=== PATIENT | female | born 1980 | race Caucasian/White ===

== ENCOUNTER 2019-12-14 15:02 | Emergency (ER) | payer OTHER ==
[~2019-12-14] VITALS: Ht 170.2 cm; Wt 47.6 kg
== END 2019-12-14 15:26 | disposition home or self-care (01) ==
LOC: ER 15:05
DX: K02.9 Dental caries, unspecified (principal); L03.211 Cellulitis of face
CPT/HCPCS: A4663

== ENCOUNTER 2020-03-19 22:26 | Emergency (ER) | payer OTHER ==
[~2020-03-19] VITALS: Ht 170.2 cm; Wt 52.2 kg
--- NOTE | 2020-03-19 22:46 | NUR ---
Dr. Peter at bedside for MSE. Chapperoned by ESTIVEN Benitez.
--- NOTE | 2020-03-19 22:57 | NUR ---
Dr. Peter performing pelvic exam, chapperoned by ESTIVEN Benitez.
[2020-03-19 23:06] LABS: *BILIRUBIN,URIN 1+ (NEGATIVE); *BLOOD, URINE NEGATIVE (NEGATIVE); *CLARITY,URINE CLEAR (CLEAR); *COLOR,URINE Orange (YELLOW); *KETONES,URINE NEGATIVE (NEGATIVE); LEUKOCYTE ESTERASE ,URINE 3+ (NEGATIVE); NITRITE, URINE POSITIVE (NEGATIVE); PH,URINE 6.5 (5.0-8.0); UGLUCOSE TRACE (NEGATIVE)
[2020-03-19] MEDS ORDERED: FLUCONAZOLE 100 MG TABLET ONE (23:06)
[2020-03-19 23:08] LABS: *URINE HCG, QUAL NEGATIVE (NEGATIVE)
[2020-03-19] MEDS ORDERED: FLUCONAZOLE 100 MG TABLET PO ONE (23:15)
--- NOTE | 2020-03-19 23:19 | NUR ---
Patient discharged to home in stable condition. Written and verbal after care instructions given. Patient verbalizes understanding of instructions. Stressed follow up or return to ER for worsening s/s. Patient ambulated out of ER with steady gait, no acute signs of distress, VSS, all belongings taken.
[2020-03-19 23:21] VITALS: BP 130/85
[2020-03-19 23:26] LABS: RBC,URINE 0-3 /HPF (0-3); SQUAMOUS EPITHELIAL CELL,UR MODERATE /HPF (NONE SEEN)
[2020-03-19 23:27] LABS: TRICHOMONAS,URINE FEW /HPF (NONE SEEN)
[2020-03-19 23:30] LABS: BACTERIA,URINE FEW /HPF (NONE SEEN)
== END 2020-03-19 23:22 | disposition home or self-care (01) ==
LOC: ER 22:28
DX: B37.3 Candidiasis of vulva and vagina (principal); N39.0 Urinary tract infection, site not specified; R03.0 Elevated blood-pressure reading, without diagnosis of hypertension; F17.200 Nicotine dependence, unspecified, uncomplicated
CPT/HCPCS: 84703; 87086; A4663

== ENCOUNTER 2020-12-04 18:10 | Emergency (ER) | payer OTHER ==
[~2020-12-04] VITALS: Ht 167.6 cm; Wt 54.4 kg
[2020-12-04] MEDS ORDERED: SULF15DR6 OP (18:42)
--- NOTE | 2020-12-04 18:51 | NUR ---
Patient discharged to home in stable condition. Written and verbal after care instructions given. Patient verbalizes understanding of instructions. Stressed follow up or return to ER for worsening s/s.
== END 2020-12-04 18:52 | disposition home or self-care (01) ==
LOC: ER 18:12
DX: H00.014 Hordeolum externum left upper eyelid (principal); Z88.5 Allergy status to narcotic agent; Z88.0 Allergy status to penicillin; F17.200 Nicotine dependence, unspecified, uncomplicated
CPT/HCPCS: A4663

== ENCOUNTER 2021-01-12 12:38 | Emergency (ER) | payer OTHER ==
[~2021-01-12] VITALS: Ht 167.6 cm; Wt 54.4 kg
[~2021-01-12 12:38] MED LIST: SULF15DR6 OP
--- NOTE | 2021-01-12 12:50 | NUR ---
at bedside for assessment
--- NOTE | 2021-01-12 13:00 | NUR ---
manual breast exam performed by
--- NOTE | 2021-01-12 14:03 | NUR ---
Lorne luna in EDM - 01/12/21 at 1404 by LASHAWN Patient discharged to home in stable condition. Written and verbal after care instructions given. Patient verbalizes understanding of instructions. Stressed follow up or return to ER for worsening s/s.
--- NOTE | 2021-01-12 14:03 | NUR ---
Pt was given verbal ACI by but left before written ACI was given.
== END 2021-01-12 14:03 | disposition home or self-care (01) ==
LOC: ER 12:38
DX: N63.20 Unspecified lump in the left breast, unspecified quadrant (principal); R01.1 Cardiac murmur, unspecified; F41.9 Anxiety disorder, unspecified; Z80.8 Family history of malignant neoplasm of other organs or systems; Z88.0 Allergy status to penicillin; Z86.69 Personal history of other diseases of the nervous system and sense organs
CPT/HCPCS: A4663

== ENCOUNTER 2021-03-06 16:35 | Emergency (ER) | payer OTHER ==
[~2021-03-06] VITALS: Ht 167.6 cm; Wt 54.4 kg
--- NOTE | 2021-03-06 18:00 | NUR ---
at bedside for assessment
[2021-03-06] MEDS ORDERED: FLUORESCEIN SODIUM 1 MG STRIP ONE (18:29)
[2021-03-06] MEDS ORDERED: TETRACAINE HCL 0.5% OPHT DROP 2 ML BOTTLE ONE (18:29)
[2021-03-06] MEDS ORDERED: SULF15DR6 LEFTEYE (18:47)
--- NOTE | 2021-03-06 19:00 | NUR ---
Patient discharged to home in stable condition. Patient left without signing discharge papers. Written and verbal after care instructions given. Patient verbalizes understanding of instructions. Stressed follow up or return to ER for worsening s/s.
[2021-03-06 19:14] VITALS: BP 153/66
== END 2021-03-06 19:00 | disposition home or self-care (01) ==
LOC: ER 16:38
DX: H10.9 Unspecified conjunctivitis (principal); Z88.0 Allergy status to penicillin; G43.909 Migraine, unspecified, not intractable, without status migrainosus; Z88.5 Allergy status to narcotic agent
CPT/HCPCS: A4663

== ENCOUNTER 2021-05-24 22:55 | Emergency (ER) | payer OTHER ==
[~2021-05-24] VITALS: Ht 170.2 cm; Wt 52.2 kg
[~2021-05-24 22:55] MED LIST changes: +SULF15DR6 LEFTEYE
[2021-05-25] MEDS ORDERED: ERYT250C69 PO (00:01)
[2021-05-25] MEDS ORDERED: OXYC-128 PO (00:01)
[2021-05-25] MEDS ORDERED: ERYTHROMYCIN BASE 250 MG TABLET.DR PO ONE (00:15)
[2021-05-25] MEDS ORDERED: OXYCODONE/APAP 5-325 MG TABLET PO ONE (00:15)
[2021-05-25] MEDS ORDERED: OXYCODONE/APAP 5-325 MG TABLET ONE (00:21)
[2021-05-25 00:31] VITALS: BP 110/77
--- NOTE | 2021-05-27 11:58 | NUR ---
left message for patient. Her wound culture was positive for MRSA so the antibiotic needs to be changed.
== END 2021-05-25 00:32 | disposition home or self-care (01) ==
LOC: ER 22:56
DX: L02.512 Cutaneous abscess of left hand (principal); L03.012 Cellulitis of left finger; Z88.6 Allergy status to analgesic agent; Z88.0 Allergy status to penicillin; R00.0 Tachycardia, unspecified
CPT/HCPCS: 87070; 87077; A4663; J8499

== ENCOUNTER 2023-09-07 11:41 | Emergency (ER) | payer OTHER ==
[~2023-09-07] VITALS: Ht 170.2 cm; Wt 54.4 kg
[~2023-09-07 11:41] MED LIST changes: +ERYT250C69 PO; +OXYC-128 PO
[2023-09-07 11:54] VITALS: O2SAT 99
[2023-09-07] MEDS ORDERED: HYDR-3980 PO (12:14)
[2023-09-07] MEDS ORDERED: SULF1TAB48 PO (12:14)
== END 2023-09-07 12:40 | disposition home or self-care (01) ==
LOC: ER 11:41
DX: H00.015 Hordeolum externum left lower eyelid (principal); G43.909 Migraine, unspecified, not intractable, without status migrainosus; F41.9 Anxiety disorder, unspecified; F17.200 Nicotine dependence, unspecified, uncomplicated; Z79.899 Other long term (current) drug therapy; Z88.0 Allergy status to penicillin; Z88.5 Allergy status to narcotic agent
CPT/HCPCS: A4606; A4663

== ENCOUNTER 2023-12-10 00:27 | Emergency (ER) | payer OTHER ==
[~2023-12-10 00:27] MED LIST changes: -ERYT250C69 PO; +HYDR-3980 PO; -OXYC-128 PO; -SULF15DR6 LEFTEYE; -SULF15DR6 OP; +SULF1TAB48 PO
== END 2023-12-10 01:23 | disposition left against medical advice (07) ==
LOC: ER 00:31
DX: T78.40XA Allergy, unspecified, initial encounter (principal); G43.909 Migraine, unspecified, not intractable, without status migrainosus; F41.9 Anxiety disorder, unspecified; F17.200 Nicotine dependence, unspecified, uncomplicated; Z79.899 Other long term (current) drug therapy; Z88.0 Allergy status to penicillin; Z88.5 Allergy status to narcotic agent; Y92.89 Other specified places as the place of occurrence of the external cause

== ENCOUNTER 2025-02-06 03:35 | Emergency (ER) | payer OTHER ==
[~2025-02-06] VITALS: Ht 167.6 cm; Wt 56.7 kg
[2025-02-06] MEDS ORDERED: NEOM28.43 TP (04:13)
[2025-02-06] MEDS ORDERED: CLIN300C12 PO (04:13)
[2025-02-06] MEDS ORDERED: NEOMY/BACITRA/POLYMYXIN B OINT UD PACKET TP ONE (04:17)
[2025-02-06] MEDS ORDERED: CLINDAMYCIN HCL 300 MG CAPSULE ONE (04:17)
[2025-02-06] MEDS: NEOMY/BACITRA/POLYMYXIN B OINT UD PACKET TP ONE (04:21)
[2025-02-06] MEDS: CLINDAMYCIN HCL 150 MG CAPSULE PO ONE (04:21)
[2025-02-06 04:23] VITALS: BP 124/78; O2SAT 98
== END 2025-02-06 04:32 | disposition home or self-care (01) ==
LOC: ER 03:37
DX: L03.114 Cellulitis of left upper limb (principal); L08.89 Other specified local infections of the skin and subcutaneous tissue; F17.200 Nicotine dependence, unspecified, uncomplicated; G43.909 Migraine, unspecified, not intractable, without status migrainosus; F41.9 Anxiety disorder, unspecified; Z60.2 Problems related to living alone; Z88.0 Allergy status to penicillin; Z88.5 Allergy status to narcotic agent; Z88.7 Allergy status to serum and vaccine; W57.XXXA Bitten or stung by nonvenomous insect and other nonvenomous arthropods, initial encounter; Y93.89 Activity, other specified; Y92.89 Other specified places as the place of occurrence of the external cause; Y99.8 Other external cause status
CPT/HCPCS: A4606; A4663